=== PATIENT | female | born 1985 | race African-American/Black ===

== ENCOUNTER 2017-06-11 18:43 | Observation (INO) | payer MEDICAID ==
[~2017-06-11] VITALS: Ht 172.7 cm; Wt 93.0 kg
[~2017-06-11 18:43] MED LIST: BACTRIM; FERR-63 PO; KEFLEX; PREN-88 PO; QUET100T; QUET25TA PO; VICODIN; [UNRECOGNIZED DRUG - OTHER] PO
[2017-06-11] MEDS ORDERED: LACTATED RINGERS 1,000 ML IV SCH (19:54)
[2017-06-11 20:10] LABS: CLARITY URINE CLOUDY (CLEAR); COLOR URINE YELLOW (YELLOW); GLUCOSE URINE NEGATIVE (NEGATIVE); KETONES URINE NEGATIVE (NEGATIVE); LEUKOCYTE ESTERASE URINE 3+ (NEGATIVE); NITRITE URINE NEGATIVE (NEGATIVE); OCCULT BLOOD URINE NEGATIVE (NEGATIVE); PH URINE 5.5 (4.5-8.0); PROTEIN URINE NEGATIVE (NEGATIVE); SPECIFIC GRAVITY URINE 1.008 (1.005-1.030); UROBILINOGEN URINE 0.2 E.U./dL (0.2-1.0)
[2017-06-11] MEDS ORDERED: CEFAZOLIN 2,000 MG in DEXT 5% WATER 100 ML IV NR (22:45)
== END 2017-06-11 23:30 | disposition home or self-care (01) ==
LOC: L&D 18:43
PROVIDERS: ADMIT Obstetrics & Gynecology; ATTEND Obstetrics & Gynecology
DX: O62.9 Abnormality of forces of labor, unspecified (principal); Z3A.39 39 weeks gestation of pregnancy
CPT/HCPCS: 81001; 96361; 96365; 99281; G0378; J0690; 96360; J7060

== ENCOUNTER 2017-06-13 23:22 | Observation (INO) | payer MEDICAID ==
[~2017-06-13 23:22] MED LIST changes: -BACTRIM; -KEFLEX; -QUET25TA PO; -VICODIN; -[UNRECOGNIZED DRUG - OTHER] PO
== END 2017-06-14 01:40 | disposition home or self-care (01) ==
LOC: L&D 23:22
PROVIDERS: ADMIT Obstetrics & Gynecology; ATTEND Obstetrics & Gynecology
DX: O62.9 Abnormality of forces of labor, unspecified (principal); Z3A.39 39 weeks gestation of pregnancy
CPT/HCPCS: 99281; G0378

== ENCOUNTER 2017-06-16 23:53 | Observation (INO) | payer MEDICAID ==
[~2017-06-16] VITALS: Ht 172.7 cm; Wt 93.4 kg
== END 2017-06-17 02:10 | disposition home or self-care (01) ==
LOC: L&D 23:53
PROVIDERS: ADMIT Obstetrics & Gynecology; ATTEND Obstetrics & Gynecology
DX: O62.9 Abnormality of forces of labor, unspecified (principal); O21.2 Late vomiting of pregnancy; O48.0 Post-term pregnancy; Z3A.40 40 weeks gestation of pregnancy
CPT/HCPCS: 99281; G0378

== ENCOUNTER 2017-06-17 12:56 | Inpatient (IN) | payer MEDICAID ==
[~2017-06-17] VITALS: Ht 172.7 cm; Wt 94.8 kg
[2017-06-17] MEDS ORDERED: DEXT 5%/LACTATED RINGERS 1,000 ML IV SCH (13:38)
[2017-06-17] MEDS ORDERED: MISOPROSTOL 100MCG TABLET VG SCH (13:45)
[2017-06-17] MEDS: MISOPROSTOL 100MCG TABLET VG PRN (14:30)
[2017-06-17] MEDS: LACTATED RINGERS 1,000 ML IV SCH (14:59)
[2017-06-17 15:24] LABS: CLARITY URINE CLEAR (CLEAR); COLOR URINE YELLOW (YELLOW); GLUCOSE URINE NEGATIVE (NEGATIVE); KETONES URINE NEGATIVE (NEGATIVE); LEUKOCYTE ESTERASE URINE 2+ (NEGATIVE); NITRITE URINE NEGATIVE (NEGATIVE); OCCULT BLOOD URINE NEGATIVE (NEGATIVE); PROTEIN URINE NEGATIVE (NEGATIVE); SPECIFIC GRAVITY URINE 1.019 (1.005-1.030); UROBILINOGEN URINE 0.2 E.U./dL (0.2-1.0)
[2017-06-17 15:37] LABS: *AMPHETAMINES SCREEN URINE NEGATIVE (NEGATIVE); *BARBITURATES SCREEN URINE NEGATIVE (NEGATIVE); *BENZODIAZEPINES SCREEN URINE NEGATIVE (NEGATIVE); *COCAINE SCREEN URINE NEGATIVE (NEGATIVE); CANNABINOID URINE SCREEN NEGATIVE (NEGATIVE); METHADONE URINE SCREEN NEGATIVE (NEGATIVE); OPIATES URINE SCREEN NEGATIVE (NEGATIVE); PHENCYCLIDINE URINE SCREEN NEGATIVE (NEGATIVE)
[2017-06-17 15:38] LABS: BASOPHILS % 0.7 % (0.0-2.0); HEMATOCRIT. 37.8 % (36.0-48.0); HEMOGLOBIN. 12.5 g/dL (12.0-16.0); LYMPHOCYTES % 27.3 % (20.0-50.0); MEAN CORPUSCULAR HEMOGLOBIN 27.6 pg (28.0-32.0); MEAN CORPUSCULAR VOLUME 83.2 fL (81.0-99.0); MEAN PLATELET VOLUME 8.3 fl (7.4-10.4); MONOCYTES % 9.2 % (2.0-8.0); NEUTROPHILS % 60.8 % (40.0-76.0); PLATELET 267 x1000/uL (130-400); RED BLOOD CELL COUNT 4.54 mill/uL (4.2-5.4); RED CELL DISTRIBUTION WIDTH 13.4 % (11.6-14.6)
[2017-06-17 16:07] LABS: HEPATITIS B SURFACE ANTIGEN NEGATIVE; RUBELLA IGG 135.7 IU/mL (4.99-10)
[2017-06-18] MEDS: LACTATED RINGERS 1,000 ML IV SCH (02:58)
[2017-06-18] MEDS: MISOPROSTOL 100MCG TABLET VG PRN (05:13)
[2017-06-18] MEDS ORDERED: NALOXONE HCL 0.4 MG/ML 1ML VIAL IM PRN (08:45)
[2017-06-18] MEDS ORDERED: CARBOPROST TROMETHAMINE 250 MCG/ML AMPUL IM PRN (08:45)
[2017-06-18] MEDS ORDERED: LIDOCAINE HCL 1% 20ML VIAL (Pyxis) INJ INFIL SCH (08:45)
[2017-06-18] MEDS ORDERED: METHYLERGONOVINE MALEATE 0.2 MG/ML IM PRN (08:45)
[2017-06-18] MEDS: DEXT 5%/LR + PITOCIN 20UNITS/L 1,000 ML IV SCH ×2 (08:47→12:09)
[2017-06-18] MEDS: BUTORPHANOL TARTRATE 2 MG/ML VIAL IV PRN ×2 (08:56→10:35)
[2017-06-18] MEDS ORDERED: DEXT 5%/LR + PITOCIN 20UNITS/L 1,000 ML IV SCH (11:56)
[2017-06-18] MEDS ORDERED: RHO(D) IMMUNE GLOBULIN 300 MCG/SYR IM PRN (12:00)
[2017-06-18] MEDS ORDERED: IBUPROFEN 400MG TABLET PO PRN (12:00)
[2017-06-18 14:00] VITALS: BP 120/75
[2017-06-18 14:15] VITALS: BP 118/71
[2017-06-18 14:30] VITALS: BP 113/72
[2017-06-18] MEDS: IBUPROFEN 800MG TABLET PO PRN (15:09)
[2017-06-18] MEDS: ACETAMINOPHEN WITH CODEINE 300/30MG TABLET PO PRN (17:58)
[2017-06-18 20:00] VITALS: BP 110/72
[2017-06-19 07:27] LABS: BASOPHILS % 0.4 % (0.0-2.0); EOSINOPHILS % 1.2 % (0.0-5.0); HEMATOCRIT. 38.3 % (36.0-48.0); HEMOGLOBIN. 12.6 g/dL (12.0-16.0); LYMPHOCYTES % 18.8 % (20.0-50.0); MEAN CORPUSCULAR HEMOGLOBIN 27.5 pg (28.0-32.0); MEAN CORPUSCULAR VOLUME 83.3 fL (81.0-99.0); MEAN PLATELET VOLUME 8.4 fl (7.4-10.4); NEUTROPHILS % 73.6 % (40.0-76.0); PLATELET 274 x1000/uL (130-400); RED CELL DISTRIBUTION WIDTH 14.1 % (11.6-14.6)
[2017-06-19] MEDS ORDERED: LANOLIN OINT 0.25 GM TUBE TOP SCH (08:00)
[2017-06-19] MEDS: IBUPROFEN 800MG TABLET PO PRN (08:27)
[2017-06-19 09:32] VITALS: BP 109/77
[2017-06-19 16:10] VITALS: BP 112/64
[2017-06-19] MEDS ORDERED: MIDAZOLAM HCL 2 MG/2 ML VIAL ONE ×2 (17:36→18:00)
[2017-06-19] MEDS ORDERED: FENTANYL CITRATE/PF 50MCG/ML 2ML VIAL ONE (17:36)
[2017-06-19] MEDS ORDERED: PROPOFOL 200MG/20ML VIAL IV ONE (17:51)
[2017-06-19] MEDS ORDERED: LIDOCAINE HCL 1% 20ML VIAL (Pyxis) INJ ONE (17:52)
[2017-06-19] MEDS ORDERED: ONDANSETRON HCL 4MG/2ML VIAL ONE (18:15)
[2017-06-19] MEDS ORDERED: BUPIVACAINE HCL/PF 0.25% (2.5MG/ML) 10ML ONE (18:38)
[2017-06-19] MEDS ORDERED: HYDROMORPHONE HCL/PF 2MG/ML CPJ IV PRN (19:00)
[2017-06-19] MEDS ORDERED: DIPHENHYDRAMINE 50MG/ML VIAL IV PRN (19:00)
[2017-06-19 22:00] VITALS: BP 110/78
[2017-06-19 23:00] VITALS: BP 106/77
[2017-06-19] MEDS: ACETAMINOPHEN WITH CODEINE 300/30MG TABLET PO PRN (23:18)
[2017-06-20 04:01] VITALS: BP 108/80
[2017-06-20] MEDS: IBUPROFEN 800MG TABLET PO PRN ×2 (04:59→10:33)
[2017-06-20 07:25] VITALS: BP 96/55
[2017-06-20 10:33] VITALS: BP 97/65
== END 2017-06-20 11:30 | disposition home or self-care (01) | DRG 541 ==
LOC: UNDOADMOB 12:56 → L&D 12:56 → OBSVTOIN 12:56 → L&D 06-18 08:28 → INTOOBSV 06-18 11:37 → OBSVTOIN 06-18 11:37 → L&D 06-18 15:00 → 7EST PP/OB 06-18 15:00 → L&D 06-19 17:40 → 7EST PP/OB 06-19 17:40 → L&D 06-19 22:57 → UNDODISIN 06-20 11:30
PROVIDERS: ADMIT Obstetrics & Gynecology; ATTEND Obstetrics & Gynecology
PROC: 3E0S3CZ (ICD-10-PCS; 2017-06-18)
PROC: 00HU33Z Insertion of Infusion Device into Spinal Canal, Percutaneous Approach (ICD-10-PCS; 2017-06-18)
PROC: 10E0XZZ Delivery of Products of Conception, External Approach (ICD-10-PCS; principal; 2017-06-18 11:03)
PROC: 0UB70ZZ Excision of Bilateral Fallopian Tubes, Open Approach (ICD-10-PCS; 2017-06-19)
PROC: 30233S1 Transfusion of Nonautologous Globulin into Peripheral Vein, Percutaneous Approach (ICD-10-PCS; 2017-06-20)
DX: O69.81X0 Labor and delivery complicated by cord around neck, without compression, not applicable or unspecified (principal); Z82.49 Family history of ischemic heart disease and other diseases of the circulatory system; Z37.0 Single live birth; Z30.2 Encounter for sterilization; Z3A.40 40 weeks gestation of pregnancy; Z83.3 Family history of diabetes mellitus
CPT/HCPCS: 36415; 80305; 81001; 85025; 85730; 86592; 86703; 86762; 86850; 86886; 86900; 87340; 88302; 90384; 99281; G0378; J0595; J2250; J2310; J2405; J2590; J2704; J3010; J3490; J7120; J7121